=== PATIENT | female | born 1965 | race American Indian/Alaskan Native ===

== ENCOUNTER 2017-10-19 06:37 | Outpatient (CLI) | payer BC ==
--- NOTE | 2017-10-20 12:58 | PET Report ---
PET SB TO MT SUBSEQUENT: HISTORY: Restaging of breast cancer. TECHNIQUE: 12.3 millicuries F-18 FDG was administered intravenously. Noncontrast CT images and PET images were obtained from the skull base to the proximal thighs. Fused images were reviewed on a workstation. The patient's blood glucose level measured 104. COMPARISON: 09/08/16. FINDINGS: BRAIN: physiologic FDG uptake in the imaged brain. NECK: physiologic FDG uptake. CHEST WALL: Bilateral breast tissue expanders are intact and unremarkable. No recurrent breast or chest wall mass. MEDIASTINUM: physiologic FDG uptake. LUNGS: physiologic FDG uptake. PLEURA/PERICARDIUM: physiologic FDG uptake. THORACIC LYMPH NODES: physiologic FDG uptake. HEPATOBILIARY: Large 3 cm gallstone within the gallbladder is unchanged. No acute inflammation. No liver mass is appreciated. Mean liver SUV measures 4.2 as opposed to 3.9 on the previous exam. PANCREAS: physiologic FDG uptake. SPLEEN: physiologic FDG uptake. ADRENAL GLANDS: physiologic FDG uptake. KIDNEYS/RENAL COLLECTING SYSTEMS: physiologic FDG uptake. BOWEL/MESENTERY: physiologic FDG uptake. PELVIC VISCERA: physiologic FDG uptake. ABDOMINAL/PELVIC LYMPH NODES: physiologic FDG uptake. MUSCULOSKELETAL: physiologic FDG uptake. IMPRESSION: Negative PET/CT. Stable findings since 09/08/16 exam.
== END 2017-10-19 06:38 | disposition home or self-care (01) ==
LOC: PET 06:37
PROVIDERS: ATTEND Internal Medicine Hematology & Oncology
DX: C50.911 Malignant neoplasm of unspecified site of right female breast (principal); K80.20 Calculus of gallbladder without cholecystitis without obstruction; Z79.899 Other long term (current) drug therapy
CPT/HCPCS: 78815; 82962; A9552